=== PATIENT | male | born 1945 | race African-American/Black ===

== ENCOUNTER 2023-07-12 07:40 | Emergency (ER) | payer MEDICARE, OTHER ==
[~2023-07-12] VITALS: Ht 188 cm; Wt 113.6 kg
[2023-07-12 07:48] VITALS: TEMP 98.3
[2023-07-12] MEDS ORDERED: TELM20 PO (07:54)
[2023-07-12] MEDS ORDERED: FURO20 PO (07:54)
[2023-07-12] MEDS ORDERED: CARV3 PO (07:54)
[2023-07-12 08:35] LABS: BASOPHILS % (AUTO) 0.6 % (0.0-2.0); EOSINOPHILS % (AUTO) 0.5 % (1.0-6.0); HEMATOCRIT 34.2 % (41-53); HEMOGLOBIN 10.9 g/dL (13.5-17.5); LYMPHOCYTES % (AUTO) 11.5 % (22.0-44.0); MEAN CORPUSCULAR HEMOGLOBIN 24.8 pg (26.0-34.0); MEAN CORPUSCULAR HGB CONC 31.9 G/dL (31.0-37.0); MEAN CORPUSCULAR VOLUME 78 fL (80-100); MONOCYTES # (AUTO) 1.1 K/uL (0.1-1.0); MONOCYTES % (AUTO) 12.4 % (2.0-9.0); NEUTROPHILS # (AUTO) 6.7 K/uL (1.8-7.7); PLATELET COUNT (AUTO) 191 K/uL (150-450); RED CELL DISTRIBUTION WIDTH 13.6 % (11.5-14.5); WHITE BLOOD COUNT (AUTO) 8.9 K/uL (4.5-11.0)
[2023-07-12 08:50] LABS: CALCIUM, TOTAL 9.2 mg/dL (8.8-10.5); CREATININE 2.21 mg/dL (0.60-1.30); POTASSIUM 3.5 mmol/L (3.5-5.1)
[2023-07-12 09:16] VITALS: BP 141/92; PULSE 88; RESP 16
== END 2023-07-12 09:32 | disposition home or self-care (01) ==
LOC: EMS 07:45
DX: S09.90XA Unspecified injury of head, initial encounter (principal); R42 Dizziness and giddiness; I10 Essential (primary) hypertension; Z98.890 Other specified postprocedural states; Z96.653 Presence of artificial knee joint, bilateral; X58.XXXA Exposure to other specified factors, initial encounter; Y93.89 Activity, other specified; Y92.89 Other specified places as the place of occurrence of the external cause; Y99.8 Other external cause status
CPT/HCPCS: 80048; 85025; 93005; 99284

== ENCOUNTER 2024-09-30 18:38 | Inpatient (IN) | payer MEDICARE, OTHER ==
[~2024-09-30] VITALS: Ht 182.9 cm; Wt 132.4 kg
[~2024-09-30 18:38] MED LIST: ALBU18HF12 IH; APIX2.5T PO; CARV3 PO; FURO20TA5 PO; LOSA-417 PO; METO-325 PO; POTA-92 PO; POTA8CAP20 PO; PRED-729 PO; TELM20 PO
[2024-09-30 22:00] VITALS: BP 162/96; PULSE 78; RESP 20; TEMP 97.8; O2SAT 100
[2024-09-30] MEDS: MELATONIN 5 MG TABLET PO PRN (23:19)
[2024-09-30 23:40] VITALS: PULSE 80; RESP 26; O2SAT 99
[2024-10-01 01:30] VITALS: PULSE 73; RESP 19; O2SAT 99
[2024-10-01] MEDS: PNEUMOCOCCAL VACCINE POLYVALENT 0.5 ML SYRINGE [PPSV23] IM. ONE (02:15)
[2024-10-01] MEDS: INFLUENZA VIRUS VACCINE TVS (6MO+) 2024-25/PF 45 MCG/0.5 ML SYRINGE IM. ONE (02:15)
[2024-10-01 04:10] VITALS: PULSE 77; RESP 20; O2SAT 99
[2024-10-01] MEDS: ALBUTEROL SULFATE HFA 90 MCG/PUFF 8 GM INHALER IH PRN (05:07)
[2024-10-01 05:08] VITALS: O2SAT 99
[2024-10-01 06:15] LABS: BASOPHILS % (AUTO) 0.5 % (0.0-2.0); EOSINOPHILS % (AUTO) 0 % (1.0-6.0); HEMATOCRIT 36.1 % (41-53); HEMOGLOBIN 11.2 g/dL (13.5-17.5); LYMPHOCYTES # (AUTO) 1.3 K/uL (1.0-4.8); LYMPHOCYTES % (AUTO) 18.9 % (22.0-44.0); MEAN CORPUSCULAR HEMOGLOBIN 23.9 pg (26.0-34.0); MEAN CORPUSCULAR HGB CONC 31.1 G/dL (31.0-37.0); MEAN CORPUSCULAR VOLUME 77 fL (80-100); MONOCYTES # (AUTO) 0.9 K/uL (0.1-1.0); MONOCYTES % (AUTO) 13.2 % (2.0-9.0); NEUTROPHILS # (AUTO) 4.7 K/uL (1.8-7.7); NEUTROPHILS % (AUTO) 67.4 % (40.0-70.0); PLATELET COUNT (AUTO) 167 K/uL (150-450); RED BLOOD CELL COUNT(AUTO) 4.69 MIL/uL (4.50-5.90); RED CELL DISTRIBUTION WIDTH 14.7 % (11.5-14.5)
[2024-10-01 06:31] LABS: ALBUMIN 2.4 g/dL (3.4-5.0); BILIRUBIN,TOTAL 0.4 mg/dL (0.1-1.0); CALCIUM, TOTAL 9.1 mg/dL (8.8-10.5); CREATININE 1.96 mg/dL (0.60-1.30); POTASSIUM 3.6 mmol/L (3.5-5.1)
[2024-10-01 07:39] LABS: RBC MORPHOLOGY COMMENT ABNORMAL RBC MORPH
[2024-10-01 08:00] VITALS: BP 147/107; PULSE 83; RESP 20; TEMP 97.6; O2SAT 100
[2024-10-01] MEDS: LOSARTAN POTASSIUM 25 MG TABLET PO SCH (08:43)
[2024-10-01] MEDS: DOCUSATE SODIUM 250 MG CAPSULE PO SCH (08:43)
[2024-10-01] MEDS: CARVEDILOL 25 MG TABLET PO SCH (08:43)
[2024-10-01] MEDS: FUROSEMIDE 20 MG TABLET PO SCH (08:43)
[2024-10-01] MEDS: ETHYL ALCOHOL 62% ANTISEPTIC NASAL SANITIZER 0.6 ML AMPUL NASAL SCH (08:43)
[2024-10-01] MEDS: PredniSONE 10 MG TABLET PO SCH (08:43)
[2024-10-01] MEDS: METOPROLOL SUCCINATE 50 MG ER TABLET PO SCH (08:44)
[2024-10-01] MEDS: APIXABAN 2.5 MG TABLET PO SCH (08:44)
[2024-10-01] MEDS: COLD CREAM, SKIN EMOLLIENT 340 GM JAR TP SCH (08:49)
[2024-10-01] MEDS ORDERED: PredniSONE 20 MG TABLET PO SCH (09:00)
[2024-10-01] MEDS: PredniSONE 10 MG TABLET PO ONE (09:31)
[2024-10-01] MEDS: FOLIC ACID/VIT B COMPLEX AND C TABLET PO SCH (09:51)
[2024-10-01 20:35] VITALS: BP 143/105; PULSE 96; RESP 20; TEMP 97.8; O2SAT 100
[2024-10-01 21:30] VITALS: PULSE 82; RESP 23; RESP 24; O2SAT 100
[2024-10-01] MEDS: OXYGEN THERAPY IH SCH (23:33)
[2024-10-02] VITALS (8 sets, daily range): BP systolic 143–158; BP diastolic 89–109; PULSE 74–99; RESP 18–26; TEMP 97.8; O2SAT 97–100
[2024-10-02] MEDS: PredniSONE 20 MG TABLET PO SCH (08:50)
[2024-10-03 08:30] VITALS: O2SAT 99
[2024-10-03 08:45] VITALS: BP 162/97; PULSE 99; RESP 20; TEMP 97.7; O2SAT 99
[2024-10-03 20:00] VITALS: BP 155/99; PULSE 100; RESP 24; TEMP 97.5; O2SAT 99
[2024-10-03] MEDS: QUEtiapine FUMARATE 25 MG TABLET PO SCH (20:36)
[2024-10-03] MEDS: ACETAMINOPHEN 325 MG TABLET PO PRN (20:39)
[2024-10-04 08:05] VITALS: BP 150/99; PULSE 88; RESP 18; TEMP 98; O2SAT 98
[2024-10-04 10:00] VITALS: BP 148/104; PULSE 87; RESP 18; O2SAT 100
[2024-10-04] MEDS: FERROUS GLUCONATE 324 MG TABLET PO SCH (12:09)
[2024-10-04 14:43] VITALS: O2SAT 99
[2024-10-04 20:00] VITALS: BP_SYST 158; BP_SYST 171; BP_DIAS 107; BP_DIAS 91; PULSE 91; RESP 24; TEMP 97.7; O2SAT 99
[2024-10-04 23:00] VITALS: BP 162/76
[2024-10-05] VITALS (9 sets, daily range): BP systolic 143–177; BP diastolic 56–111; PULSE 57–105; RESP 18–28; TEMP 97.4–97.5; O2SAT 91–100
[2024-10-05] MEDS: LOSARTAN POTASSIUM 50 MG TABLET PO SCH (08:47)
[2024-10-05] MEDS: HydrALAZINE HCL 25 MG TABLET PO PRN (11:07)
[2024-10-05 11:11] LABS: BASOPHILS % (AUTO) 0.5 % (0.0-2.0); EOSINOPHILS % (AUTO) 0.2 % (1.0-6.0); HEMATOCRIT 37.6 % (41-53); HEMOGLOBIN 11.6 g/dL (13.5-17.5); LYMPHOCYTES # (AUTO) 1.1 K/uL (1.0-4.8); LYMPHOCYTES % (AUTO) 19.3 % (22.0-44.0); MEAN CORPUSCULAR HEMOGLOBIN 23.9 pg (26.0-34.0); MEAN CORPUSCULAR HGB CONC 30.9 G/dL (31.0-37.0); MEAN CORPUSCULAR VOLUME 77 fL (80-100); MONOCYTES # (AUTO) 0.9 K/uL (0.1-1.0); MONOCYTES % (AUTO) 14.8 % (2.0-9.0); NEUTROPHILS # (AUTO) 3.8 K/uL (1.8-7.7); NEUTROPHILS % (AUTO) 65.2 % (40.0-70.0); PLATELET COUNT (AUTO) 153 K/uL (150-450); RED BLOOD CELL COUNT(AUTO) 4.86 MIL/uL (4.50-5.90); WHITE BLOOD COUNT (AUTO) 5.8 K/uL (4.5-11.0)
[2024-10-05 11:20] LABS: RBC MORPHOLOGY COMMENT ABNORMAL RBC MORPH
[2024-10-05 11:22] LABS: CALCIUM, TOTAL 8.9 mg/dL (8.8-10.5); CREATININE 1.62 mg/dL (0.60-1.30); POTASSIUM 3.4 mmol/L (3.5-5.1)
[2024-10-05] MEDS ORDERED: ALBUTEROL SULFATE 2.5 MG/0.5 ML NEB SOLUTION NEB PRN (12:00)
[2024-10-05] MEDS: POTASSIUM CHLORIDE 10% 40 MEQ/30 ML LIQUID UDCUP PO ONE (12:11)
[2024-10-05 12:22] LABS: APPEARANCE,URINE CLEAR (CLEAR); BILIRUBIN,URINE NEGATIVE (NEGATIVE); COLOR,URINE YELLOW (YELLOW); GLUCOSE, URINE (UA) NEGATIVE (NEGATIVE); KETONES,URINE NEGATIVE (NEGATIVE); LEUKOCYTE ESTERASE ,URINE NEGATIVE (NEGATIVE); NITRATE,URINE NEGATIVE (NEGATIVE); OCCULT BLOOD,URINE SMALL (NEGATIVE); PROTEIN,URINE >600,SEE CONFIRM mg/dL (NEGATIVE); SPECIFIC GRAVITIY, URINE 1.025 (1.003-1.030); UROBILINOGEN,URINE <=1.0 mg/dL (<=1.0)
[2024-10-05 12:52] LABS: BACTERIA,URINE None Seen /HPF (None Seen); RBC,URINE 0-2 /HPF (0-2); SQUAMOUS EPITHELIAL CELL,UR Few /LPF (None Seen); SULFOSALICYLIC ACID,URINE 3+ (Negative); WBC,URINE None Seen /HPF (0-5)
[2024-10-05] MEDS: DIGOXIN 250 MCG/ML 2 ML AMP IVP ONE (14:08)
[2024-10-05] MEDS: FUROSEMIDE 40 MG/4 ML VIAL IVP ONE (14:19)
[2024-10-05] MEDS: LEVALBUTEROL 1.25 MG/0.5 ML NEB SOLUTION NEB ONE (14:47)
[2024-10-05] MEDS: IPRATROPIUM BROMIDE 0.5 MG/2.5 ML NEB SOLUTION NEB ONE (14:47)
[2024-10-05] MEDS ORDERED: FAMO20TA8 PO (19:58)
[2024-10-05] MEDS ORDERED: FURO40TA5 PO (19:58)
[2024-10-05] MEDS ORDERED: APIX2.5T PO (19:58)
[2024-10-05] MEDS ORDERED: CARV25TA32 PO (19:58)
[2024-10-05] MEDS ORDERED: DOCU100C33 PO (19:58)
[2024-10-05] MEDS ORDERED: QUEtiapine FUMARATE 25 MG TABLET PO SCH (21:00)
[2024-10-11] MEDS ORDERED: PredniSONE 10 MG TABLET PO SCH (09:00)
[2024-10-14] MEDS ORDERED: PredniSONE 20 MG TABLET PO SCH (09:00)
[2024-10-17] MEDS ORDERED: PredniSONE 10 MG TABLET PO SCH (09:00)
== END 2024-10-05 15:40 | disposition short-term general hospital (02) | DRG 291 ==
LOC: 2WR 20:56
PROVIDERS: ADMIT Physical Medicine & Rehabilitation; ATTEND Physical Medicine & Rehabilitation
PROC: 5A09357 Assistance with Respiratory Ventilation, Less than 24 Consecutive Hours, Continuous Positive Airway Pressure (ICD-10-PCS; principal; 2024-10-01)
DX: I13.0 Hypertensive heart and chronic kidney disease with heart failure and stage 1 through stage 4 chronic kidney disease, or unspecified chronic kidney disease (principal); I50.33 Acute on chronic diastolic (congestive) heart failure; E46 Unspecified protein-calorie malnutrition; F05 Delirium due to known physiological condition; J45.901 Unspecified asthma with (acute) exacerbation; I48.91 Unspecified atrial fibrillation; E66.01 Morbid (severe) obesity due to excess calories; G47.33 Obstructive sleep apnea (adult) (pediatric); I89.0 Lymphedema, not elsewhere classified; E78.00 Pure hypercholesterolemia, unspecified; I25.10 Atherosclerotic heart disease of native coronary artery without angina pectoris; I34.0 Nonrheumatic mitral (valve) insufficiency; Z74.09 Other reduced mobility; Z96.653 Presence of artificial knee joint, bilateral; R26.9 Unspecified abnormalities of gait and mobility; R41.89 Other symptoms and signs involving cognitive functions and awareness; R45.86 Emotional lability; R53.81 Other malaise; N18.30 Chronic kidney disease, stage 3 unspecified; D63.8 Anemia in other chronic diseases classified elsewhere; R06.82 Tachypnea, not elsewhere classified; R45.1 Restlessness and agitation; Z68.39 Body mass index [BMI] 39.0-39.9, adult; Z79.01 Long term (current) use of anticoagulants
CPT/HCPCS: 71045; 80048; 80053; 81001; 81002; 83880; 85025; 87081; 92507; 92523; 92526; 92610; 94660; 97110; 97116; 97163; 97167; 97530; 97535; 99366; 99368; J1160; J1940; J3535; 36415-L1; 36415-TC; J7512; Z7610

== ENCOUNTER 2024-10-05 15:19 | Inpatient (IN) | payer MEDICARE, OTHER ==
[~2024-10-05 15:19] MED LIST changes: -CARV3 PO; -POTA8CAP20 PO; -TELM20 PO
[2024-10-05] MEDS ORDERED: ALBUTEROL SULFATE HFA 90 MCG/PUFF 8 GM INHALER IH PRN (16:30)
[2024-10-05] MEDS ORDERED: APIX2.5T PO (19:58)
[2024-10-05] MEDS ORDERED: FURO40TA5 PO (19:58)
[2024-10-05] MEDS ORDERED: DOCU100C33 PO (19:58)
[2024-10-05] MEDS ORDERED: CARV25TA32 PO (19:58)
[2024-10-05] MEDS ORDERED: FAMO20TA8 PO (19:58)
[2024-10-05 20:07] VITALS: BP 165/119; PULSE 78; RESP 19; TEMP 98.4; O2SAT 99
[2024-10-05] MEDS: CARVEDILOL 25 MG TABLET PO SCH (20:39)
[2024-10-05] MEDS: FUROSEMIDE 40 MG/4 ML VIAL IVP SCH (20:40)
[2024-10-05] MEDS: APIXABAN 2.5 MG TABLET PO SCH (20:40)
[2024-10-05] MEDS ORDERED: ONDANSETRON HCL 4 MG/2 ML VIAL IVP PRN (20:45)
[2024-10-05] MEDS ORDERED: BISACODYL 10 MG RECTAL RECTAL SUPPOSITORY PR PRN (20:45)
[2024-10-05] MEDS ORDERED: MAGNESIUM HYDROXIDE SUSPENSION 30 ML UDCUP PO PRN (20:45)
[2024-10-05] MEDS ORDERED: HYDROCODONE/ACETAMINOPHEN 5-325 MG TABLET PO PRN (20:45)
[2024-10-05] MEDS ORDERED: MORPHINE SULFATE 2 MG/ML SYRINGE IVP PRN (20:45)
[2024-10-05] MEDS ORDERED: ZOLPIDEM TARTRATE 5 MG TABLET PO PRN (20:45)
[2024-10-05 21:00] VITALS: PULSE 74; PULSE 80; RESP 20; RESP 22; O2SAT 98
[2024-10-05] MEDS ORDERED: APIXABAN 2.5 MG TABLET PO SCH (21:00)
[2024-10-05] MEDS: IPRATROPIUM BROMIDE 0.5 MG/2.5 ML NEB SOLUTION NEB PRN (21:04)
[2024-10-05] MEDS: ALBUTEROL SULFATE 2.5 MG/0.5 ML NEB SOLUTION NEB PRN (21:04)
[2024-10-05 21:10] VITALS: PULSE 77; RESP 20; O2SAT 99
[2024-10-05 22:02] VITALS: BP 161/98; PULSE 88; RESP 21; TEMP 98.4; O2SAT 99
[2024-10-05 22:34] LABS: ABG BASE EXCESS 4.2 mmol/L (-2.0-3.0); ABG CARBOXYHEMOGLOBIN 0.8 % (0.5-1.5); ABG HCO3 27.8 mmol/L (21.0-28.0); ABG METHEMOGLOBIN 0.2 % (0.0-1.5); ABG OXYGEN CONTENT 17.7 mL/dL (15.0-23.0); ABG PCO2 44 mmHg (32.0-48.0); ABG PH 7.427 (7.350-7.450); ABG TOTAL HEMOGLOBIN 12.9 G/dL (13.5-17.5); ALLEN TEST, BLOOD GAS Positive; O2 DEVICE,BLOOD GAS CANNULA (ROOM AIR); PO2, ARTERIAL BG 104.3 mmHg (83.0-108.0); SITE, BLOOD GAS RT RADIAL; SOURCE, BLOOD GAS ARTERIAL; TEMPERATURE, FAHRENHEIT, BG 98.6 FAHREN (96.0-98.6)
[2024-10-05 23:15] VITALS: BP 160/95; PULSE 85; RESP 20; TEMP 97.5; O2SAT 100
[2024-10-06] VITALS (8 sets, daily range): BP systolic 132–170; BP diastolic 61–111; PULSE 87–99; RESP 19–22; TEMP 97.7–98.5; O2SAT 97–100
[2024-10-06] MEDS ORDERED: FUROSEMIDE 20 MG TABLET PO SCH (09:00)
[2024-10-06] MEDS ORDERED: LOSARTAN POTASSIUM 50 MG TABLET PO SCH (09:00)
[2024-10-06] MEDS ORDERED: METOPROLOL SUCCINATE 50 MG ER TABLET PO SCH (09:00)
[2024-10-06] MEDS: PANTOPRAZOLE SODIUM 40 MG DR TABLET PO SCH (09:27)
[2024-10-06] MEDS: LOSARTAN POTASSIUM 25 MG TABLET PO SCH (09:27)
[2024-10-06 13:23] LABS: BASOPHILS % (AUTO) 0.4 % (0.0-2.0); EOSINOPHILS % (AUTO) 1.1 % (1.0-6.0); HEMOGLOBIN 11.4 g/dL (13.5-17.5); LYMPHOCYTES # (AUTO) 0.9 K/uL (1.0-4.8); LYMPHOCYTES % (AUTO) 17.5 % (22.0-44.0); MEAN CORPUSCULAR HEMOGLOBIN 23.9 pg (26.0-34.0); MEAN CORPUSCULAR HGB CONC 30.9 G/dL (31.0-37.0); MEAN CORPUSCULAR VOLUME 78 fL (80-100); MONOCYTES # (AUTO) 0.9 K/uL (0.1-1.0); MONOCYTES % (AUTO) 15.9 % (2.0-9.0); NEUTROPHILS # (AUTO) 3.5 K/uL (1.8-7.7); NEUTROPHILS % (AUTO) 65.1 % (40.0-70.0); PLATELET COUNT (AUTO) 150 K/uL (150-450); RED BLOOD CELL COUNT(AUTO) 4.78 MIL/uL (4.50-5.90); RED CELL DISTRIBUTION WIDTH 14.4 % (11.5-14.5); WHITE BLOOD COUNT (AUTO) 5.4 K/uL (4.5-11.0)
[2024-10-06 13:33] LABS: CALCIUM, TOTAL 8.6 mg/dL (8.8-10.5); CREATININE 1.81 mg/dL (0.60-1.30); MAGNESIUM 1.8 mg/dL (1.80-2.40); POTASSIUM 3.3 mmol/L (3.5-5.1)
[2024-10-06 13:35] LABS: RBC MORPHOLOGY COMMENT ABNORMAL RBC MORPH
[2024-10-06] MEDS ORDERED: HydrALAZINE HCL 20 MG/ML VIAL IVP PRN (20:15)
[2024-10-06] MEDS: POTASSIUM CHLORIDE 20 MEQ ER TABLET PO ONE (20:32)
[2024-10-07 04:00] VITALS: BP 165/101; PULSE 89; RESP 19; TEMP 97.8; O2SAT 100
[2024-10-07 07:25] LABS: BASOPHILS % (AUTO) 0.2 % (0.0-2.0); EOSINOPHILS % (AUTO) 0.6 % (1.0-6.0); HEMATOCRIT 39.2 % (41-53); LYMPHOCYTES # (AUTO) 1.2 K/uL (1.0-4.8); LYMPHOCYTES % (AUTO) 21.8 % (22.0-44.0); MEAN CORPUSCULAR HGB CONC 30.7 G/dL (31.0-37.0); MEAN CORPUSCULAR VOLUME 78 fL (80-100); MONOCYTES # (AUTO) 1.1 K/uL (0.1-1.0); MONOCYTES % (AUTO) 18.9 % (2.0-9.0); NEUTROPHILS # (AUTO) 3.3 K/uL (1.8-7.7); NEUTROPHILS % (AUTO) 58.5 % (40.0-70.0); PLATELET COUNT (AUTO) 154 K/uL (150-450); RED BLOOD CELL COUNT(AUTO) 5.02 MIL/uL (4.50-5.90); RED CELL DISTRIBUTION WIDTH 14.6 % (11.5-14.5); WHITE BLOOD COUNT (AUTO) 5.6 K/uL (4.5-11.0)
[2024-10-07 07:50] LABS: CALCIUM, TOTAL 9.1 mg/dL (8.8-10.5); CREATININE 1.74 mg/dL (0.60-1.30); POTASSIUM 3.4 mmol/L (3.5-5.1)
[2024-10-07 08:12] VITALS: BP 142/75; PULSE 84; RESP 20; TEMP 98.2; O2SAT 100
[2024-10-07 11:55] VITALS: BP 131/64; PULSE 90; RESP 18; TEMP 98.2; O2SAT 100
[2024-10-07 14:08] LABS: BASOPHILS % (AUTO) 0.3 % (0.0-2.0); HEMATOCRIT 39.5 % (41-53); LYMPHOCYTES % (AUTO) 17.1 % (22.0-44.0); MEAN CORPUSCULAR HEMOGLOBIN 23.7 pg (26.0-34.0); MEAN CORPUSCULAR HGB CONC 30.5 G/dL (31.0-37.0); MEAN CORPUSCULAR VOLUME 78 fL (80-100); MONOCYTES % (AUTO) 17.7 % (2.0-9.0); NEUTROPHILS # (AUTO) 3.8 K/uL (1.8-7.7); NEUTROPHILS % (AUTO) 63.9 % (40.0-70.0); PLATELET COUNT (AUTO) 145 K/uL (150-450); RED BLOOD CELL COUNT(AUTO) 5.07 MIL/uL (4.50-5.90); WHITE BLOOD COUNT (AUTO) 5.9 K/uL (4.5-11.0)
[2024-10-07 14:43] LABS: RBC MORPHOLOGY COMMENT ABNORMAL RBC MORPH
[2024-10-07 15:56] VITALS: BP 148/86; PULSE 105; RESP 20; TEMP 97.9; O2SAT 100
[2024-10-07 19:16] VITALS: BP 141/88; PULSE 101; RESP 19; TEMP 98.2; O2SAT 99
[2024-10-07 23:45] VITALS: BP 166/90; PULSE 83; RESP 19; TEMP 98.4; O2SAT 99
[2024-10-08] MEDS: ACETAMINOPHEN 325 MG TABLET PO PRN (00:12)
[2024-10-08 05:16] VITALS: BP 164/94; PULSE 101; RESP 19; TEMP 98.2; O2SAT 98
[2024-10-08 07:07] LABS: CALCIUM, TOTAL 8.8 mg/dL (8.8-10.5); CREATININE 1.72 mg/dL (0.60-1.30); POTASSIUM 3.3 mmol/L (3.5-5.1)
[2024-10-08 07:13] LABS: BASOPHILS % (AUTO) 0.1 % (0.0-2.0); EOSINOPHILS % (AUTO) 0.9 % (1.0-6.0); HEMATOCRIT 38.7 % (41-53); LYMPHOCYTES # (AUTO) 1.2 K/uL (1.0-4.8); LYMPHOCYTES % (AUTO) 23.3 % (22.0-44.0); MEAN CORPUSCULAR HEMOGLOBIN 24.2 pg (26.0-34.0); MEAN CORPUSCULAR HGB CONC 31.1 G/dL (31.0-37.0); MEAN CORPUSCULAR VOLUME 78 fL (80-100); MONOCYTES % (AUTO) 19.9 % (2.0-9.0); NEUTROPHILS # (AUTO) 2.9 K/uL (1.8-7.7); NEUTROPHILS % (AUTO) 55.8 % (40.0-70.0); PLATELET COUNT (AUTO) 137 K/uL (150-450); RED BLOOD CELL COUNT(AUTO) 4.98 MIL/uL (4.50-5.90); RED CELL DISTRIBUTION WIDTH 14.7 % (11.5-14.5); WHITE BLOOD COUNT (AUTO) 5.1 K/uL (4.5-11.0)
[2024-10-08 08:05] LABS: RBC MORPHOLOGY COMMENT ABNORMAL RBC MORPH
[2024-10-08 08:33] VITALS: BP 157/90; PULSE 106; RESP 17; TEMP 98.4; O2SAT 97
[2024-10-08 12:52] VITALS: BP 143/79; PULSE 96; RESP 18; TEMP 97.5; O2SAT 95
[2024-10-08] MEDS: DIGOXIN 250 MCG/ML 2 ML AMP IVP SCH (18:21)
[2024-10-08 19:34] VITALS: BP 183/88; PULSE 82; RESP 19; TEMP 98.6; O2SAT 100
[2024-10-08 22:20] VITALS: BP 155/105; PULSE 100; RESP 20; O2SAT 98
[2024-10-08] MEDS: POTASSIUM CHLORIDE 20 MEQ ER TABLET PO ONE (22:27)
[2024-10-09 00:37] VITALS: BP 158/96; PULSE 75; RESP 22; TEMP 98.2; O2SAT 97
[2024-10-09 05:19] VITALS: BP 152/95; PULSE 83; RESP 20; TEMP 98.6; O2SAT 95
[2024-10-09] MEDS: FUROSEMIDE 40 MG TABLET PO SCH (08:11)
[2024-10-09 09:15] VITALS: BP 144/79; PULSE 66; RESP 18; TEMP 97.9; O2SAT 98
[2024-10-09 11:56] LABS: BASOPHILS % (AUTO) 0.7 % (0.0-2.0); EOSINOPHILS % (AUTO) 1.3 % (1.0-6.0); HEMATOCRIT 37.6 % (41-53); HEMOGLOBIN 11.6 g/dL (13.5-17.5); LYMPHOCYTES % (AUTO) 18.2 % (22.0-44.0); MEAN CORPUSCULAR HGB CONC 30.9 G/dL (31.0-37.0); MEAN CORPUSCULAR VOLUME 78 fL (80-100); MONOCYTES % (AUTO) 17.7 % (2.0-9.0); NEUTROPHILS # (AUTO) 3.5 K/uL (1.8-7.7); NEUTROPHILS % (AUTO) 62.1 % (40.0-70.0); PLATELET COUNT (AUTO) 143 K/uL (150-450); RED BLOOD CELL COUNT(AUTO) 4.83 MIL/uL (4.50-5.90); RED CELL DISTRIBUTION WIDTH 15.1 % (11.5-14.5); WHITE BLOOD COUNT (AUTO) 5.6 K/uL (4.5-11.0)
[2024-10-09 12:02] LABS: CALCIUM, TOTAL 8.6 mg/dL (8.8-10.5); CREATININE 1.62 mg/dL (0.60-1.30); MAGNESIUM 1.7 mg/dL (1.80-2.40); POTASSIUM 3.7 mmol/L (3.5-5.1)
[2024-10-09 12:12] LABS: RBC MORPHOLOGY COMMENT ABNORMAL RBC MORPH
[2024-10-09] MEDS: POTASSIUM CHLORIDE 20 MEQ ER TABLET PO ONE (12:57)
[2024-10-09 13:41] VITALS: BP 138/77; PULSE 70; RESP 18; TEMP 98; O2SAT 98
[2024-10-09] MEDS: MAGNESIUM SULFATE 2 GM/WATER 50 ML IV ONE (14:06)
[2024-10-09] MEDS ORDERED: LOSA-417 PO (16:02)
[2024-10-09] MEDS ORDERED: ALBU18HF12 IH (16:02)
[2024-10-09] MEDS ORDERED: POTA-92 PO (16:02)
[2024-10-09] MEDS ORDERED: CARV25TA32 PO (16:02)
[2024-10-09] MEDS ORDERED: FURO40TA5 PO (16:02)
[2024-10-09] MEDS ORDERED: APIX2.5T PO (16:02)
[2024-10-09 16:20] VITALS: BP 132/68; PULSE 77; RESP 19; TEMP 97.7; O2SAT 96
[2024-10-10] MEDS ORDERED: POTASSIUM CHLORIDE 10 MEQ ER TABLET PO SCH (09:00)
[2024-10-11] MEDS ORDERED: PredniSONE 10 MG TABLET PO SCH (09:00)
[2024-10-14] MEDS ORDERED: PredniSONE 20 MG TABLET PO SCH (09:00)
[2024-10-17] MEDS ORDERED: PredniSONE 10 MG TABLET PO SCH (09:00)
== END 2024-10-09 16:40 | disposition home health service (06) | DRG 314 ==
LOC: 5N 15:51
PROVIDERS: ADMIT Hospitalist; ATTEND Hospitalist
DX: I27.20 Pulmonary hypertension, unspecified (principal); J96.00 Acute respiratory failure, unspecified whether with hypoxia or hypercapnia; I13.0 Hypertensive heart and chronic kidney disease with heart failure and stage 1 through stage 4 chronic kidney disease, or unspecified chronic kidney disease; E46 Unspecified protein-calorie malnutrition; I50.32 Chronic diastolic (congestive) heart failure; I47.20 Ventricular tachycardia, unspecified; E66.01 Morbid (severe) obesity due to excess calories; D64.9 Anemia, unspecified; I89.0 Lymphedema, not elsewhere classified; N18.9 Chronic kidney disease, unspecified; G47.33 Obstructive sleep apnea (adult) (pediatric); Z96.653 Presence of artificial knee joint, bilateral; I48.91 Unspecified atrial fibrillation; E87.6 Hypokalemia; I25.10 Atherosclerotic heart disease of native coronary artery without angina pectoris; J45.909 Unspecified asthma, uncomplicated; Z79.899 Other long term (current) drug therapy
CPT/HCPCS: 36600; 80048; 82805; 83735; 85025; 93306; 94640; 97116; 97163; 97167; 97530; J1160; J1940; J3475